=== PATIENT | female | born 1960 ===

== ENCOUNTER 2024-09-24 10:13 | Outpatient (CLI) | payer OTHER | END 2024-09-24 10:15 | disposition home or self-care (01) | LOC: MAMO-SONO 10:13 | PROVIDERS: ATTEND Internal Medicine | DX: N60.11 Diffuse cystic mastopathy of right breast (principal); N60.12 Diffuse cystic mastopathy of left breast; N64.4 Mastodynia; Z12.31 Encounter for screening mammogram for malignant neoplasm of breast ==